=== PATIENT | male | born 1990 | race American Indian/Alaskan Native ===

== ENCOUNTER 2019-11-26 16:28 | Emergency (ER) | payer SELFPAY ==
[2019-11-26 17:09] VITALS: BP 129/70
--- NOTE | 2019-11-26 17:37 | Emergency Department Report ---
ED ENT HPI - General Chief complaint: Sore Throat Stated complaint: SORE THROAT Time Seen by Provider: 11/26/19 17:17 Source: patient Mode of arrival: Ambulatory Limitations: No Limitations - History of Present Illness Initial comments: This is a 29-year-old male nontoxic well in appearance with no signs of distress presents to the ED with complaint of sore throat. Patient stated symptoms started 4 days ago. Stated last week had a slash of radiator fluid accidentally. Patient denies any drooling or hoarseness. Patient denies any other symptoms. Denies any fever, chills, headache, nausea, vomiting, chest pain or SOB. Denies any other complaints. MD complaint: sore throat -: days(s) (4) Location: throat Severity: mild Severity scale (0 -10): 8 Quality: aching Consistency: constant Improves with: none Worsens with: swallowing Associated Symptoms: pain with swallowing, sore throat. denies: fever, cough, gum swelling, toothache, tinnitus, hearing loss, discharge from ear, rhinorrhea - Related Data Previous Rx's Medication Instructions Recorded Last Taken Type Amoxicillin [Amoxicillin TAB] 875 mg PO BID #20 tablet 11/26/19 Unknown Rx Allergies Allergy/AdvReac Type Severity Reaction Status Date / Time No Known Allergies Allergy Unverified 11/26/19 16:34 ED Dental HPI - General Chief complaint: Sore Throat Stated complaint: SORE THROAT Time Seen by Provider: 11/26/19 17:17 Source: patient Mode of arrival: Ambulatory Limitations: No Limitations - Related Data Previous Rx's Medication Instructions Recorded Last Taken Type Amoxicillin [Amoxicillin TAB] 875 mg PO BID #20 tablet 11/26/19 Unknown Rx Allergies Allergy/AdvReac Type Severity Reaction Status Date / Time No Known Allergies Allergy Unverified 11/26/19 16:34 ED Review of Systems ROS: Stated complaint: SORE THROAT Other details as noted in HPI Constitutional: denies: chills, fever Eyes: denies: eye pain, eye discharge, vision change ENT: throat pain. denies: ear pain Respiratory: denies: cough, shortness of breath, wheezing Cardiovascular: denies: chest pain, palpitations Endocrine: no symptoms reported Gastrointestinal: denies: abdominal pain, nausea, diarrhea Genitourinary: denies: urgency, dysuria Musculoskeletal: denies: back pain, joint swelling, arthralgia Skin: denies: rash, lesions Neurological: denies: headache, weakness, paresthesias Psychiatric: denies: anxiety, depression Hematological/Lymphatic: denies: easy bleeding, easy bruising ED Past Medical Hx - Past Medical History Previous Medical History?: No - Surgical History Past Surgical History?: No - Social History Smoking Status: Never Smoker Substance Use Type: None - Medications Home Medications: Home Medications Medication Instructions Recorded Confirmed Last Taken Type Amoxicillin [Amoxicillin TAB] 875 mg PO BID #20 tablet 11/26/19 Unknown Rx ED Physical Exam - General Limitations: No Limitations General appearance: alert, in no apparent distress - Head Head exam: Present: atraumatic, normocephalic - Expanded ENT Exam Expanded Ear exam: Present: normal external inspection Mouth exam: Present: normal external inspection. Absent: drooling, trismus, muffled voice Teeth exam: Present: normal inspection Throat exam: Positive: tonsillar erythema, other (uvula midline.). Negative: tonsillomegaly, tonsillar exudate, R peritonsillar mass, L peritonsillar mass - Extremities Exam Extremities exam: Present: full ROM - Back Exam Back exam: Present: normal inspection, full ROM. Absent: tenderness, CVA tenderness (R), CVA tenderness (L), muscle spasm, paraspinal tenderness, vertebral tenderness, rash noted - Neurological Exam Neurological exam: Present: alert, oriented X3, normal gait - Psychiatric Psychiatric exam: Present: normal affect, normal mood - Skin Skin exam: Present: warm, dry, intact, normal color. Absent: rash ED Course Vital Signs 11/26/19 17:06 Temperature 98.1 F Pulse Rate 74 Respiratory 18 Rate Blood Pressure 129/70 O2 Sat by Pulse 100 Oximetry - Reevaluation(s) Reevaluation #1: 11/26/19 17:40 Patient is speaking in full sentences with no signs of distress noted. - Consultations Consultation #1: 11/26/19 17:41 Poison control notified (Denia) and stated patient can be discharged as this is not a concern due to last week. ED Medical Decision Making - Medical Decision Making Patient was instructed to Follow-up with a primary care doctor in 3-5 days or if symptoms worsen and continue return to emergency room as soon as possible. At time of discharge, the patient does not seem toxic or ill in appearance. No acute signs of distress noted. Patient agrees to discharge treatment plan of care. No further questions noted by the patient. Critical care attestation.: If time is entered above; I have spent that time in minutes in the direct care of this critically ill patient, excluding procedure time. ED Disposition Clinical Impression: Pharyngitis Qualifiers: Pharyngitis/tonsillitis etiology: unspecified etiology Qualified Code(s): J02.9 - Acute pharyngitis, unspecified Disposition: TO HOME OR SELFCARE Is pt being admited?: No Does the pt Need Aspirin: No Condition: Stable Instructions: Pharyngitis (ED) Additional Instructions: Follow-up with a primary care doctor in 3-5 days or if symptoms worsen and continue return to emergency room as soon as possible. Prescriptions: Amoxicillin [Amoxicillin TAB] 875 mg PO BID #20 tablet Referrals: PRIMARY MD REYNA [Primary Care Provider] - 3-5 Days SYLVIA GROVE MD [Staff Physician] - 3-5 Days [facility] [Outside] - 3-5 Days Forms: Work/School Release Form(ED)
== END 2019-11-26 17:42 | disposition home or self-care (01) ==
LOC: ED 16:28
DX: J02.9 Acute pharyngitis, unspecified (principal); Z79.899 Other long term (current) drug therapy
CPT/HCPCS: 99282

== ENCOUNTER 2022-01-19 17:58 | Emergency (ER) | payer SELFPAY ==
[2022-01-19] MEDS ORDERED: ONDANSETRON 4 MG/2 ML INJ IV ONE (18:14)
[2022-01-19] MEDS ORDERED: propofoL 200 MG/20 ML VIAL IV ONE ×2 (18:14→18:48)
[2022-01-19] MEDS ORDERED: SODIUM CHLORIDE 0.9% 500 ML 500 ML IV ONE (18:14)
[2022-01-19] MEDS ORDERED: KETAMINE 500 MG/5 ML VIAL MDV IV ONE ×2 (18:14→18:48)
--- NOTE | 2022-01-19 18:16 | Emergency Department Report ---
Upper Extremity - HPI Chief Complaint: Extremity Injury, Upper Stated Complaint: LT SHOULDER PAIN Time Seen by Provider: 01/19/22 18:14 Upper Extremity: Left Shoulder Occurred When: Today Mechanism: Fall, Twist Severity: moderate Symptoms: Yes Pain with Movement, Yes Deformity, Yes Limited Range of Movement, No Numbness, No Weakness, No Swelling, No Bruising/Ecchymosis, No Laceration or Abrasion Other History: This patient is a pleasant and cooperative 31-year-old gentleman, presenting to the ER today with a left-sided shoulder dislocation after he slipped on wet floor while at home. This is his first lifetime shoulder dislocation. He denies additional injuries and complaints. He reports no issues with anesthesia. He has not eaten for at least the past 4 hours. ED Review of Systems ROS: Stated complaint: LT SHOULDER PAIN Other details as noted in HPI Comment: All other systems reviewed and negative Musculoskeletal: joint swelling, myalgia Neurological: denies: weakness ED Past Medical Hx - Social History Smoking Status: Never Smoker Substance Use Type: None - Medications Home Medications: Home Medications Medication Instructions Recorded Confirmed Last Taken Type Acetaminophen [Non-Aspirin Extra 500 mg PO Q6HR PRN #30 tablet 01/19/22 Unknown Rx Strength] Ibuprofen [Motrin] 600 mg PO Q8H PRN #30 tablet 01/19/22 Unknown Rx Upper Extremity Exam - Exam General: Vital signs noted. No distress. Alert and acting appropriately. Sensation is intact to light touch in the left deltoid, median, radial, and ulnar distribution. Thumb opposition and finger intrinsic range of motion preserved and intact. No facial droop. Tongue midline. Extraocular movements intact bilaterally. Facial sensation intact to light touch in V1, V2, V3 distribution bilaterally. 5 and a 5 strength in 4 extremities. Sensation intact to light touch in 4 extremities. There is no long bony tenderness with the exception of isolated left lateral shoulder tenderness. Head and Torso: No HEENT Abnormality, No Neck Tenderness, No Chest/Lungs Abnormality, No Abdominal Tenderness, No Back Tenderness Shoulder Exam: Yes Shoulder Tenderness (Left shoulder), Yes Shoulder Deformity (Left shoulder), No Clavicle Tenderness, No Normal Range of Motion in Shoulder (Left shoulder), No AC Joint Tenderness Arm Exam: No Arm/Humerus Tenderness, No Arm Deformity Elbow: Yes Normal Range of Motion in Elbow, No Elbow Tenderness, No Elbow Deformity Forearm: No Forearm Tenderness, No Forearm Deformity, No Pain with Pronation, No Pain with Supination Wrist: Yes Normal ROM in Wrist, No Wrist Tenderness, No Wrist Deformity, No Snuffbox Tenderness, No Pain with Axial Thumb Compression Hand: Yes Normal ROM in Digit(s), No Hand Tenderness, No Hand Deformity, No Digit Tenderness, No Digit(s) Deformity, No Tendon Dysfunction CMS Exam: Yes Normal Distal Pulses, Yes Normal Capillary Refill, Yes Normal Distal Sensation, No Broken Skin ED Course Vital Signs 01/19/22 18:03 Temperature 98.5 F Pulse Rate 80 Respiratory 16 Rate Blood Pressure 150/80 [Left] O2 Sat by Pulse 99 Oximetry - Reevaluation(s) Reevaluation #1: 01/19/22 18:29 Differential diagnosis, including but limited to: Sprain, strain, fracture, dislocation Assessment and plan: 31-year-old gentleman with evidence of left-sided shoulder dislocation, without additional injuries or complaints. He is awake, alert, oriented, sober of sound mind. He is neurovascularly intact. Discussed various options for shoulder reduction, however, have recommended moderate sedation for close joint reduction. Risks, benefits and alternatives discussed. Patient provides verbal and written informed consent for moderate sedation. X-ray pending, moderate sedation set up to be initiated. Reassess after reduction. 01/19/22 19:03 Sedation time started at 18: 41, and ended at 18: 47. 01/19/22 19:40 Patient is reassessed frequently. He is adequately recovered from sedation. No airway issues. Neurovascularly intact. X-ray confirms successful reduction. Typing on cell phone and left hand. All questions answered for patient, sign ificant other - Moderate Sedation Indications: fracture/dislocation redu Presedation Evaluation: Patient reports no complications from anesthesia in the past. He consumes smoke products/vapes occasionally. Airway adequate, patent and intact. Phonating in complete sentences. No stridor. Risk, benefits alternatives of moderate sedation with closed reduction were discussed with the patient, who provides verbal and written informed consent for moderate sedation and closed reduction ASA Class: I Mallampati Airway Score: 2 Time of Last PO Intake: 14:00 Preparation: phototypesetting equipment monitor applied, pulse oximeter, capnometry used, suppl emental O2 applied, suction/airway equipment at bedside, IV secured Ketamine: IV Ketamine Dose: 100 IV Propofol Dose (mgs): 60 Complications: none Patient Tolerated Procedure: well - Orthopedic Joint Reduction Joint #1 Consent Obtained: verbal consent, written consent, emergent situation Time Out Performed: Yes Side: left Joint Reduction Location: shoulder Analgesia: moderate sedation Shoulder Technique Used (if applicable): scapula manipulation Post-Reduction Neuro Exam: intact Post-Reduction Vascular Exam: intact Post Reduction X-Ray Obtained: Yes Post Reduction X-Ray Results: reduced Splint Applied: Yes Patient Tolerated Procedure: well - Orthopedic Splinting/Casting Injury #1 Side: left Upper Extremity Injury Location: shoulder Upper Extremity Immobilizer: sling/shoulder immobilize ED Medical Decision Making - Lab Data Vital Signs 01/19/22 01/19/22 18:03 18:40 Temperature 98.5 F 98.7 F Pulse Rate 80 85 Respiratory 16 17 Rate Blood Pressure 150/80 135/74 [Left] O2 Sat by Pulse 99 100 Oximetry - Radiology Data Radiology results: report reviewed, image reviewed . LEFT SHOULDER 2 VIEW(S) INDICATION / CLINICAL INFORMATION: left shoulder dislocation. COMPARISON: None available. FINDINGS: BONES / JOINT(S): Anterior shoulder dislocation. Postreduction x-ray recommended. No fracture visualized No significant arthritis. SOFT TISSUES: No significant abnormality. ADDITIONAL FINDINGS: None. IMPRESSION: 1. Left anterior shoulder dislocation Signer Name: Blayne Presley MD Signed: 01/19/2022 5:35 PM Workstation Name: [id number] LEFT SHOULDER 2 VIEW(S) 6:52 PM INDICATION / CLINICAL INFORMATION: left shoulder reduction. COMPARISON: 6:18 PM same day FINDINGS: BONES / JOINT(S): Humeral head has been reduced since prior study. No fracture visualized No significant arthritis. SOFT TISSUES: No significant abnormality. ADDITIONAL FINDINGS: None. IMPRESSION: 1. No acute findings. Signer Name: Blayne Presley MD Signed: 01/19/2022 6:16 PM Critical care attestation.: If time is entered above; I have spent that time in minutes in the direct care of this critically ill patient, excluding procedure time. ED Disposition Clinical Impression: Dislocation of left shoulder joint Qualifiers: Encounter type: initial encounter Qualified Code(s): S43.005A - Unspecified dislocation of left shoulder joint, initial encounter Disposition: HOME / SELF CARE / HOMELESS Is pt being admited?: No Does the pt Need Aspirin: No Condition: Good Instructions: Shoulder Dislocation, Moderate Conscious Sedation, Adult Additional Instructions: Do not drive or operate motor vehicles for the next 24 hours. Do not consume alcohol, tobacco and smoke products for the next 24 hours. Do not lift heavy items or use the left upper extremity for heavy lifting. May use left upper extremity for light duty and light lifting. Take the prescribed pain medications as needed and directed. Follow-up with an orthopedic physician for left shoulder dislocation within the next 7 to 10 days. Please return to the emergency room right away with new pain, worsened pain, migration of pain, projectile vomiting, change in mental status, confusion, inability tolerate liquid feeds, new, worsened or different symptoms not present on the initial emergency room evaluation Prescriptions: Ibuprofen [Motrin] 600 mg PO Q8H PRN #30 tablet PRN Reason: Pain Acetaminophen [Non-Aspirin Extra Strength] 500 mg PO Q6HR PRN #30 tablet PRN Reason: Pain , Severe (7-10) Referrals: PRIMARY CARE, [Primary Care Provider] - 3-5 Days AVIS WHELAN MD [Staff Physician] - 3-5 Days JEAN MARIE STRICKLAND MD [Staff Physician] - 3-5 Days [facility] [Provider Group] - 3-5 Days Forms: Work/School Release Form(ED)
--- NOTE | 2022-01-19 18:39 | XRay Report ---
. LEFT SHOULDER 2 VIEW(S) INDICATION / CLINICAL INFORMATION: left shoulder dislocation. COMPARISON: None available. FINDINGS: BONES / JOINT(S): Anterior shoulder dislocation. Postreduction x-ray recommended. No fracture visuali zed No significant arthritis. SOFT TISSUES: No significant abnormality. ADDITIONAL FINDINGS: None. IMPRESSION: 1. Left anterior shoulder dislocation Signer Name: Blayne Presley MD Signed: 01/19/2022 6:35 PM Workstation Name: [id number]
--- NOTE | 2022-01-19 19:20 | XRay Report ---
LEFT SHOULDER 2 VIEW(S) 6:52 PM INDICATION / CLINICAL INFORMATION: left shoulder reduction. COMPARISON: 6:18 PM same day FINDINGS: BONES / JOINT(S): Humeral head has been reduced since prior study. No fracture visualized No signific ant arthritis. SOFT TISSUES: No significant abnormality. ADDITIONAL FINDINGS: None. IMPRESSION: 1. No acute findings. Signer Name: Blayne Presley MD Signed: 01/19/2022 7:16 PM Workstation Name: [id number]
[2022-01-19 19:37] VITALS: BP 132/60
== END 2022-01-19 20:58 | disposition home or self-care (01) ==
LOC: ED 17:58
DX: S43.005A Unspecified dislocation of left shoulder joint, initial encounter (principal); Z79.899 Other long term (current) drug therapy; W01.0XXA Fall on same level from slipping, tripping and stumbling without subsequent striking against object, initial encounter; Y93.89 Activity, other specified; Y92.89 Other specified places as the place of occurrence of the external cause; Y99.8 Other external cause status
CPT/HCPCS: 23650; 73020; 73030; 96374; 99284; J2405; J2704; J3490; J7040